=== PATIENT | male | born 1960 ===

== ENCOUNTER 2025-05-18 11:00 | Day surgery (SDC) | payer OTHER ==
[2025-05-11 12:47] VITALS: BP 131/77
[~2025-05-18] VITALS: Ht 165.1 cm; Wt 73.9 kg
[~2025-05-18 11:00] MED LIST: LIPITOR20 MG; PEPCID
[2025-05-18] MEDS ORDERED: CEFTRIAXONE SODIUM 2,000 MG VIAL ONE (12:15)
[2025-05-18] MEDS ORDERED: METRONIDAZOLE/SODIUM CHLORIDE 500 MG/100 ML PIGGYBACK IV ONE (12:15)
[2025-05-18] MEDS ORDERED: POVIDONE-IODINE 118 ML BOTT TOP ONE (13:48)
[2025-05-18] MEDS ORDERED: BUPIVACAINE HCL/MPF 0.5% 30ML VIAL ONE (13:48)
[2025-05-18] MEDS ORDERED: HEMOSTATIC MATRIX 1 KIT KIT TOP ONE (13:48)
[2025-05-18] MEDS ORDERED: DIBUCAINE 30 GM TUBE ONE (13:48)
== END 2025-05-18 22:20 | disposition home or self-care (01) ==
LOC: CIR.AMB 11:00
PROVIDERS: ATTEND Colon & Rectal Surgery
DX: K64.2 Third degree hemorrhoids (principal); K64.4 Residual hemorrhoidal skin tags; D12.9 Benign neoplasm of anus and anal canal